=== PATIENT | female | born 1975 | race Caucasian/White ===

== ENCOUNTER → 2017-04-07 16:53 | Emergency (ER) | payer OTHER ==
[~2017-04-07] VITALS: Ht 170.2 cm; Wt 83.7 kg
[~2017-04-07 16:53] MED LIST: ALLERGY10 M1 PO; ATARAX,VISTARIL25 MG PO; MOTRIN800 MG PO; PAXIL20 MG PO; SARNA ANTI-ITC222 ML TP; TYLENOL EXTRA500 MG PO; VITAMIN B-125000 MCG SL
[2017-04-07 18:23] VITALS: BP 108/80
== END | disposition left against medical advice (07) ==
LOC: EME 16:53
DX: G43.909 Migraine, unspecified, not intractable, without status migrainosus (principal); Z53.21 Procedure and treatment not carried out due to patient leaving prior to being seen by health care provider
CPT/HCPCS: 99281; 99283

== ENCOUNTER 2017-10-02 17:38 | Emergency (ER) | payer OTHER ==
[~2017-10-02] VITALS: Ht 170.2 cm; Wt 81.8 kg
[2017-10-02 18:46] LABS: HEMATOCRIT 39.5 % (36.0-46.0); HEMOGLOBIN 13.5 G/DL (11.9-15.5); MCH 30.4 PG (29.0-34.0); MCHC 34.2 G/DL (30.0-36.0); PLATELET COUNT 278 K/uL (156-360); RBC DIS.WIDTH-CV 12.5 % (11.8-14.6); RBC DIS.WIDTH-SD 40.8 % (39-53); RED BLOOD COUNT 4.44 M/uL (3.80-5.20); WHITE BLOOD COUNT 8.2 K/uL (4.1-10.2)
[2017-10-02 18:57] LABS: ALBUMIN 4.3 g/dL (3.2-4.8); CHLORIDE 105 mEq/L (99-109); POTASSIUM 4.4 mEq/L (3.7-5.4); SODIUM 139 mEq/L (136-147)
[2017-10-02 18:59] LABS: GLUCOSE 114 mg/dL (70-99); TOTAL PROTEIN 7.2 g/dL (6.4-8.3)
[2017-10-02 19:01] LABS: TOTAL BILIRUBIN 0.2 mg/dL (0.0-1.0)
[2017-10-02 19:03] LABS: ALKALINE PHOSPHATASE 78 IU/L (3-129); CREATININE 0.9 mg/dL (0.6-1.3); GFR ESTIMATE (CALCULATED) > 59 mL/min/
[2017-10-02 19:04] LABS: UREA NITROGEN (BUN) 18 mg/dL (9-23)
[2017-10-02 19:05] LABS: AST (GOT) 31 IU/L (2-34)
[2017-10-02 19:06] LABS: ALT (GPT) 35 IU/L (3-49); LIPASE 16 U/L (1.0-51.0)
[2017-10-02 19:15] LABS: QUANTITATIVE HCG < 4.0 MIU/ML
[2017-10-02 20:34] LABS: APPEARANCE CLEAR ((CLEAR)); BILIRUBIN NEGATIVE; BLOOD SMALL; COLOR YELLOW ((YELLOW)); GLUCOSE (STRIP) NEGATIVE; KETONES NEGATIVE; LEUKOCYTES NEGATIVE; NITRITE NEGATIVE; PROTEIN (STRIP) NEGATIVE; SPECIFIC GRAVITY 1.011 (1.000-1.030); UROBILINOGEN 0.2 MG/DL (0.2-1.0)
[2017-10-02 20:46] LABS: BACTERIA RARE /HPF; EPITHELIAL CELLS RARE /HPF; MUCUS TRACE /LPF; RED BLOOD CELLS 0-5 /HPF (0-5); UCUL ADDED? NO; WHITE BLOOD CELLS 0-5 /HPF (0-5)
[2017-10-02] MEDS ORDERED: PERCOCET 5/31 TABLET PO (22:00)
[2017-10-02] MEDS ORDERED: MOTRIN600 MG PO (22:00)
[2017-10-02] MEDS ORDERED: ZOFRAN ODT4 MG PO (22:00)
[2017-10-02 22:23] VITALS: BP 130/86
== END 2017-10-02 22:24 | disposition home or self-care (01) ==
LOC: EME 17:38
PROVIDERS: Nurse Practitioner Acute Care
DX: N83.202 Unspecified ovarian cyst, left side (principal); F41.9 Anxiety disorder, unspecified; F32.9 Major depressive disorder, single episode, unspecified; Z90.711 Acquired absence of uterus with remaining cervical stump
CPT/HCPCS: 76856; 80053; 81003; 83690; 84702; 85027; 99281; 99285